=== PATIENT | female | born 1995 | race Hispanic/Latino ===

== ENCOUNTER 2018-02-04 16:33 | Emergency (ER) | payer SELFPAY ==
[2018-02-04] MEDS ORDERED: ACETAMINOPHEN 325 MG TAB ONE (16:56)
[2018-02-04 17:29] LABS: RAPID GROUP A STREP NEGATIVE (NEGATIVE)
[2018-02-04 18:10] LABS: APPEARANCE,URINE Turbid (CLEAR); BILIRUBIN,URINE Negative (NEGATIVE); COLOR,URINE Yellow (YELLOW); GLUCOSE, URINE (UA) Negative (NEGATIVE); KETONES,URINE 15 mg/dL (NEGATIVE); LEUKOCYTE ESTERASE ,URINE Small (NEGATIVE); NITRATE,URINE Negative (NEGATIVE); OCCULT BLOOD,URINE Small (NEGATIVE); PH,URINE 5.5 (5.0-8.0); PROTEIN,URINE POS 1+ (NEGATIVE)
[2018-02-04 18:16] LABS: HCG,QUAL RESULT NEGATIVE (NEGATIVE)
[2018-02-04 18:18] LABS: BACTERIA,URINE Few /HPF (None Seen); RBC,URINE None Seen /HPF (0-1)
[2018-02-04 18:19] LABS: SQUAMOUS EPITHELIAL CELL,UR TNTC /LPF (0-2)
[2018-02-04] MEDS ORDERED: ONDANSETRON ODT 4 MG TAB ONE (18:29)
[2018-02-04] MEDS ORDERED: KETOROLAC TROMETHAMINE 60 MG/2 ML VIAL ONE (18:29)
== END 2018-02-04 18:52 | disposition home or self-care (01) ==
LOC: EDH 16:33
DX: N39.0 Urinary tract infection, site not specified (principal); J11.1 Influenza due to unidentified influenza virus with other respiratory manifestations
CPT/HCPCS: 81001; 81025; 87804 ×2; 87880; 96372; 99284; J1885